=== PATIENT | male | born 1955 | race Hispanic/Latino ===

== ENCOUNTER 2019-07-14 12:49 | Emergency (ER) | payer OTHER ==
[~2019-07-14] VITALS: Ht 162.6 cm; Wt 115.2 kg
[2019-07-14] MEDS ORDERED: KETOROLAC TROMETHAMINE 60 MG/2 ML VIAL IM ONE (13:15)
[2019-07-14] MEDS ORDERED: PROCHLORPERAZINE MALEATE TAB 10 MG TAB PO PRN (13:15)
--- NOTE | 2019-07-14 14:15 | Diagnostic Imaging Report ---
CT BRAIN WO HISTORY: Headache COMPARISON: None. TECHNIQUE: Noncontrast axial scans were obtained from skull base to the vertex. Coronal and sagittal reconstructions obtained from the axial data. One or more of the following dose reduction techniques were used: Automated exposure control, adjustment of the mA and/or kV according to patient size, and/or utilization of iterative reconstruction technique. DISCUSSION: Scalp/Skull: Nonspecific focal subcutaneous fat stranding in the posterior parietal scalp. No calvarial fracture. Brain sulci: Appropriate for patient's age. Ventricles: Normal in size and configuration. No hydrocephalus. Extra-axial spaces: No masses or fluid collections. Mild carotid siphon calcifications are present. Parenchyma: Mild periventricular white matter hypodensities are likely chronic microvascular ischemic changes. Otherwise, no mass, hemorrhage, or large vascular territory acute infarct. Dural sinuses: No abnormal densities. Sellar/Suprasellar region: Intact. Skull base: Intact. Incidental findings: None. IMPRESSION: 1. No acute intracranial abnormalities. 2. Mild supratentorial chronic microvascular ischemic change. Signed by: Dr. Chuckie Villegas M.D. on 07/14/2019 2:12 PM
--- NOTE | 2019-07-14 14:19 | Diagnostic Imaging Report ---
CT CERVICAL SPINE WO HISTORY: Stiff neck COMPARISON: Concurrent head CT TECHNIQUE: CT of the cervical spine without contrast. Sagittal and coronal reformations were created. One or more of the following dose reduction techniques were used: Automated exposure control, adjustment of the mA and/or kV according to patient size, and/or utilization of iterative reconstruction technique. FINDINGS: Cervical lordosis is straightened. There is no scoliosis or subluxation. No fractures, compression deformity, or destructive osseous lesions are seen. The craniocervical junction is intact. No gross spinal canal masses are seen. The paravertebral and paraspinal soft tissues are unremarkable. Mild to moderate multilevel spondylosis is most prominent at C6-C7. There is at least mild canal stenosis at C6-C7 due to posterior disc osteophyte complex. There is prominent facet arthrosis on the left at C2-C3. Prominent atlantoaxial arthrosis is present as well. Mild right carotid bulb calcified plaque is present. IMPRESSION: 1. No acute osseous abnormalities. 2. Mild to moderate multilevel spondylosis, most prominent at C6-C7. 3. Prominent left C2-C3 facet and atlantoaxial arthrosis. Signed by: Dr. Chuckie Villegas M.D. on 07/14/2019 2:15 PM
[2019-07-14] MEDS ORDERED: ENALAPRILAT IV INJ 1.25 MG/ML VIAL IV ONE (14:27)
[2019-07-14 18:09] VITALS: BP 142/65
--- OUTSIDE RECORDS SUMMARY | 2019-07-16 13:59 | XMS REPORT ---
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 Allergies, Adverse Reactions, Alerts Allergy Name Allergy Type Status Severity Reaction(s) Onset Date Inactive Date Treating Clinician Comments codeine DA Active 2018-10-14 00:00:00 codeine DA Active 2017-09-07 00:00:00 Medications This patient has no known medications. Results Test Description Test Time Test Comments Text Results Atomic Results Result Comments - CT NECK W/CONTRAST 2019-07-15 15:19:00 Name: ANTHONY GRAY [facility] : 1955 Age/S: 64 / M [address] [facility] Unit #: [id number] Loc: [place] [address] Phys: Thaddeus Cazares DO Acct: [id number] Dis Date: Status: REG ER PHONE #: [phone] Exam Date: 07/15/2019 1425 FAX #: [phone] Reason: neck pain/sore throat EXAMS: CPT CODE: [id number] CT NECK W/CONTRAST 08360 EXAM: CT of the neck with contrast; INFORMATION: Sore throat and neck pain; TECHNIQUE AND FINDINGS: CT dose reduction protocol; 2.5 mm scans were obtained through the neck during intravenous infusion of contrast material. Parotid glands and submandibular glands are unremarkable. The thyroid gland is unremarkable. No evidence of solid or cystic lesions. No adenopathy. Normal enhancement of vascular structures. Parapharyngeal soft tissues are unremarkable. Bone windows show no significant osseous abnormalities, except for degenerative changes of the cervical spine. There is disc space narrowing C6/7, associated with anterior osteophyte formation. IMPRESSION: 1. No evidence of solid or cystic mass lesions and no evidence of inflammatory changes. 2. Degenerative disc disease and spondylosis of the lower cervical spine. Location code: [facility] at 1519 Reported and signed by: Guy Duckworth M.D. CC: Thaddeus Cazares DO Technologist:Eze Rocha RT(R),(MR),(CT); CTDI: DLP: Trnscb Date/Time: 07/15/2019 (1518) [place] Orig Print D/T: S: 07/15/2019 (9539) PAGE 1 Signed Report - CT HEAD/BRAIN W/O CONT 2019-07-15 15:14:00 Name: ANTHONY GRAY [facility] : 1955 Age/S: 64 / M [address] [facility] Unit #: [id number] Loc: [place] [address] Phys: Thaddeus Cazares DO Acct: [id number] Dis Date: Status: REG ER PHONE #: [phone] Exam Date: 07/15/2019 1425 FAX #: [phone] Reason: headache EXAMS: CPT CODE: [id number] CT HEAD/BRAIN W/O CONT 87714 EXAM: CT of the head; INFORMATION: Headache and stiff neck; TECHNIQUE AND FINDINGS: CT dose reduction protocol; The ventricles are symmetric and of normal diameter; normal width of basilar cisterns and sulci; normal malik/white matter differentiation; no evidence of intra or extra-axial hemorrhage, mass lesion or midline shift. Bone windows show no abnormalities. IMPRESSION: Normal CT scan of the head. No sign ificant change compared with a study from March 15, 2019. Location code: [facility] at 9714 Reported and signed by: Guy Duckworth M.D. CC: Thaddeus Cazares DO Technologist:Eze Rocha RT(R),(MR),(CT); CTDI: DLP: Trnscb Date/Time: 07/15/2019 (5974) [email or web address] Orig Print D/T: S: 07/15/2019 (7766) PAGE 1 Signed Report BASIC METABOLIC PANEL 2019-07-15 13:59:00 SODIUM (test code=NA) 137 mmol/L 136-145 POTASSIUM (test code=K) 3.9 mmol/L 3.5-5.1 CHLORIDE (test code=CL) 103.0 mmol/L 98-107 CARBON DIOXIDE (test code=CO2) 28.0 mmol/L 21-32 ANION GAP (test code=GAP) 9.9 10-20 GLUCOSE (test code=GLU) 105 mg/dL 74-106 BLOOD UREA NITROGEN (test code=BUN) 10 mg/dL 7-18 GLOMERULAR FILTRATION RATE (test code=GFR) > 60 mL/min >=60 Estimated GFR by using Modified MDRD formula.Chronic kidney disease is defined as either kidney damageor GFR <60 mL/min/1.73 m2 for >3 months. CREATININE (test code=CREAT) 0.70 mg/dL 0.7-1.3 BUN/CREATININE RATIO (test code=BUN/CREA) 15.2 10-20 CALCIUM (test code=CA) 8.8 mg/dL 8.5-10.1 CBC W/O [id number] 13:43:00* Test Item Value Reference Range Comments WHITE BLOOD CELL (test code=WBC) 11.1 K/mm3 4.5-12.5 RED BLOOD CELL (test code=RBC) 4.60 mill/mm3 4.0-5.8 HEMOGLOBIN (test code=HGB) 12.8 gram/dL 13.0-17.5 HEMATOCRIT (test code=HCT) 40.0 % 42.0-52.0 MEAN CELL VOLUME (test code=MCV) 87.0 fL 80-98 MEAN CELL HGB (test code=MCH) 27.8 picogram 27.0-33.0 MEAN CELL HGB CONCETRATION (test code=MCHC) 32.0 gram/dL 33.0-36.0 RED CELL DISTRIBUTION WIDTH (test code=RDW) 12.6 % 11.6-16.2 PLATELET COUNT (test code=PLT) 255 K/mm3 150-450 MEAN PLATELET VOLUME (test code=MPV) 9.9 fL 6.7-11.0 CT CERVICAL SPINE [id number] 14:12:00 [place] [address] [place] [address] Patient Name: ANTHONY GRAY MR #: [id number] : 1955 Age/Sex: 64/M Req #: [id number] Adm Physician: Ordered by: TRINIDAD GIPSON MD Report #: [id number] Location: ER Room/Bed: Procedure: 121 8-0016 CT/CT CERVICAL SPINE WO Exam Date: 07/14/19 E xam Time: 1346 REPORT STATUS: Ibeth d CT CERVICAL SPINE WO HISTORY: Stiff neck COMPARISON: Concurrent head CT TECHNIQUE: CT of the cervical spine without contrast. Sagittal and coronal reformations were created. One or more of the following dose reducti on techniques were used: Automated exposure control, adjustment of the mA and/ or kV according to patient size, and/or utilization of iterative reconstructio n technique. FINDINGS: Cervical lordosis is straightened. The re is no scoliosis or subluxation. No fractures, compression deformity, or eileen tructive osseous lesions are seen. The craniocervical junction is intact. No gross spinal canal masses are seen. The paravertebral and paraspinal soft tissues are unremarkable. Mild to moderate multilevel spondylosis is most prominent at C6-C7. There is at least mild canal stenosis at C6-C7 due to pos terior disc osteophyte complex. There is prominent facet arthrosis on the left at C2-C3. Prominent atlantoaxial arthrosis is present as well. Mild rig ht carotid bulb calcified plaque is present. IMPRESSION: 1. No acute o sseous abnormalities. 2. Mild to moderate multilevel spondylosis, most promin ent at C6-C7. 3. Prominent left C2-C3 facet and atlantoaxial arthrosis. Signed by: Dr. Chuckie Villegas M.D. on 07/14/2019 2:15 PM Dictated By: HARRY VILLEGAS MD 141 5 Transcribed By: KATHLEEN on 07/14/19 1415 COPY TO: TRINIDAD GIPSON CT BRAIN [id number] 14:08:00 [place] [address] Patient Name: ANTHONY GRAY MR #: [id number] : 1955 Age/Sex: 64/M Req #: [id number] Adm Physician: Ordered by: TRINIDAD GIPSON MD Report #: [id number] Location: ER Room/Bed: Procedure: 121 8-0015 CT/CT BRAIN WO Exam Date: 07/14/19 Exam Time: 1346 REPORT STATUS: Signed CT B RAIN WO HISTORY: Headache COMPARISON: None. TECHNIQUE: Noncon trast axial scans were obtained from skull base to the vertex. Coronal and sa gittal reconstructions obtained from the axial data. One or more of the follo wing dose reduction techniques were used: Automated exposure control, adjustme nt of the mA and/or kV according to patient size, and/or utilization of iterat juan carlos reconstruction technique. DISCUSSION: Scalp/Skull: Nonspecific foc al subcutaneous fat stranding in the posterior parietal scalp. No calvarial fr acture. Brain sulci: Appropriate for patient's age. Ventricles: Normal in si ze and configuration. No hydrocephalus. Extra-axial spaces: No masses or flui d collections. Mild carotid siphon calcifications are present. Parenchym a: Mild periventricular white matter hypodensities are likely chronic micro vascular ischemic changes. Otherwise, no mass, hemorrhage, or large vascular t erritory acute infarct. Dural sinuses: No abnormal densities. Sellar/Sup rasellar region: Intact. Skull base: Intact. Incidental findings: None. IMPRESSION: 1. No acute intracranial abnormalities. 2. Mild supratento rial chronic microvascular ischemic change. Signed by: Dr. Chuckie Villegas M.D. on 07/14/2019 2:12 PM Dictated By: CHUCKIE VILLEGAS MD Electronical ly Signed By: CHUCKIE VILLEGAS MD on 07/14/191411 Transcribed By: KATHLEEN on 09/14/181411 COPY TO: TRINIDAD GIPSON MD - XR L-SPINE 2/3 [id number] 09:35:00 FAX: Cici Ramon NP [place]: St: REG FAX: Thaddeus Cazares DO Name: ANTHONY GRAY [facility] : 1955 Age/S: 63/M [address] [facility] Unit #: [id number] Loc: [place] [address] Phys: Cici Ramon NP Acct: [id number] Dis Date: Status: REG ER PHONE #: [phone] Exam Date: 03/15/2019 09 FAX #: [phone] Reason: pain after head injury EXAMS: CPT CODE: [id number] XR L-SPINE 2/3 VIEWS 88846 HISTORY: Pain after injury. COMPARISON: None available. 3 views of the lumbar spine: No acute fracture or dislocation. Vertebral body heights are maintained. Narrowed disc space at L4-L5 level. Anterior marginal osteophytes. SI joints are preserved. IMPRESSION: No acute fracture or dislocation. Vertebral body heights are maintained. DJD. at 0935 Reported and signed by: Bro Lara M.D. CC: Cici Ramon NP; Thaddeus Cazares DO Technologist: PRISCILA COLLINS RT(R) Trnscrd Date/Time/By: 03/15/2019 (1987) : By: [email or web address] Orig Print D/T: S: 03/15/2019 (4734) PAGE 1 Signed Report - CT C-SPINE W/O CONTRAST 2019-03-15 09:33:00 Name: ANTHONY GRAY [facility] : 1955 Age/S: 63 / M [address] [facility] Unit #: [id number] Loc: [place] [address] Phys: Cici Ramon NP Acct: [id number] Dis Date: Status: REG ER PHONE #: [phone] Exam Date: 03/15/2019914 FAX #: [phone] Reason: pain after head injury EXAMS: CPT CODE: [id number] CT C-SPINE W/O CONTRAST 52226 HISTORY: Pain after head injury. COMPARISON: CT scan from January 14, 2012. CT cervical spine without contrast: Automated exposure control. No acute fracture of the cervical spine. No prevertebral soft tissue swelling. Multilevel posterior marginal disc osteophytes especially at C6-C7 level resulting in moderate canal and severe foraminal stenosis especially on the left. Correlate with radicular symptoms. This pattern however is unchanged from 2011. Thyroid glands are unremarkable. Superior mediastinum is unremarkable. Lung apices are clear. Vertebral body heights are maintained. Anatomic alignment. Narrowed disc space at C6-C7 level. Anterior osteophytes as well. Uncovertebral joints are preserved. IMPRESSION: No acute fracture or dislocation. Vertebral body heights are maintained. DJD. at 0991 Reported and signed by: Bro Lara M.D. CC: Cici Ramon NP; Thaddeus Cazares DO Technologist:Eze Rocha RT(R),(MR),(CT); CTDI: DLP: Trnscb Date/Time: 03/15/2019 (0933) [email or web address] Orig Print D/T: S: 03/15/2019 (4613) PAGE 1 Signed Report - CT HEAD/BRAIN W/O [id number] 07:38:00 Name: ANTHONY GRAY [facility] : 1955 Age/S: 63 / M [address] Unit #: [id number] Loc: [place] [address] Phys: Cici Ramon [employer] Acct: [id number] Dis Date: Status: REG ER PHONE #: [phone] Exam Date: 03/15/2019718 FAX #: [phone] Reason: hit with concrete tester, laceration, dizzy EXAMS: CPT CODE: [id number] CT HEAD/BRAIN W/O CONT 41228 HISTORY: hit with concrete tester, laceration, dizzy TECHNIQUE: Noncontrast 2.[address] of the head. Examination acquired within 24 hours of arrival. Automated exposure control for dose reduction; DLP: 782 mGy-cm. COMPARISON: 01/14/12 FINDINGS: No acute hemorrhage. No CT e vidence of acute infarct. Trace periventricular chronic microvascular isch emic changes. No intracranial mass or mass effect. No hydrocephalus. No ex tra-axial fluid collection. Atherosclerotic vascular calcification of the carotid siphons. Visualized paranasal sinuses are clear. [place] air cells and middle ear cavities are clear. Orbital contents are unr emarkable. Calvarium and skull base are intact. High left frontal scalp so ft tissue swelling. IMPRESSION: No acute intracranial process. No calvarial fracture. Elec tronically Signed by Mely Hardy D.O. on 03/15/2019 at 0738 Reported and signed by: Mely Hardy D.O. CC: Cici Ramon NP Technologist:Eze Rocha RT(R),(MR),(CT); CTDI: DLP: Trnscb Date/Time: 03/15/2019 (0738) [email or web address] Orig Print D/T: S: 03/15/2019 (0730) PAGE 1 Signed Report
== END 2019-07-14 18:15 | disposition home or self-care (01) ==
LOC: ER 12:49
DX: S16.1XXA Strain of muscle, fascia and tendon at neck level, initial encounter (principal); M54.12 Radiculopathy, cervical region
CPT/HCPCS: 36415; 70450; 72125; 82948; 99284; J1885